=== PATIENT | male | born 1970 | race Caucasian/White ===

== ENCOUNTER 2016-08-04 05:59 | Emergency (ER) | payer MEDICAID ==
[~2016-08-04] VITALS: Ht 162.6 cm; Wt 59.0 kg
[~2016-08-04 05:59] MED LIST: ATEN-42 PO; DIPH25CA6 PO; DOCU-150 PO; FAMO20TA8 PO; LEVE750T10 PO; LEVO25TA7 PO; LORA1TAB PO; LORA2TAB2 PO; OXYB10TA11 PO; PHEN100C4 PO; SIMV10TA2 PO; SUCR1TAB PO; ZOLP10TA6 PO
[2016-08-04] MEDS ORDERED: LEVETIRACETAM 500MG TABLET PO ONE (06:45)
[2016-08-04] MEDS ORDERED: PHENYTOIN SODIUM 500 MG in SODIUM CHLORIDE 0.9% 50 ML IV ONE (06:45)
[2016-08-04] MEDS ORDERED: LORAZEPAM 2MG/ML CPJ IM ONE (07:15)
[2016-08-04] MEDS ORDERED: LEVETIRACETAM 500MG PREMIX 100 ML IV ONE (07:15)
[2016-08-04 08:36] LABS: ANION GAP 12; CALCIUM 8.3 mg/dL (8.5-10.1); CARBON DIOXIDE 26 mEq/L (21-32); CHLORIDE 107 mEq/L (98-107); INDEX HEMOLYSI 1 (1-3); INDEX ICTERIC 1 (1-4); INDEX LIPEMIC 1 (1-3); PHENYTOIN 4.6 ug/mL (10-20); UREA NITROGEN BLOOD 16 mg/dL (7-21); eGFR > 60 mL/min (>60)
[2016-08-04 08:38] LABS: CLARITY URINE CLEAR (CLEAR); COLOR URINE YELLOW (YELLOW); GLUCOSE URINE NEGATIVE (NEGATIVE); KETONES URINE NEGATIVE (NEGATIVE); LEUKOCYTE ESTERASE URINE NEGATIVE (NEGATIVE); NITRITE URINE NEGATIVE (NEGATIVE); OCCULT BLOOD URINE NEGATIVE (NEGATIVE); PROTEIN URINE NEGATIVE (NEGATIVE); SPECIFIC GRAVITY URINE 1.011 (1.005-1.030); UROBILINOGEN URINE 0.2 E.U./dL (0.2-1.0)
[2016-08-04 08:53] LABS: HEMATOCRIT. 43.8 % (42.0-52.0); HEMOGLOBIN. 14.2 g/dL (14.0-18.0); MEAN CORPUSCULAR HEMOGLOBIN 30.9 pg (28.0-32.0); MEAN CORPUSCULAR HGB CONC 32.4 g/dL (31.0-37.0); MEAN CORPUSCULAR VOLUME 95.3 fL (80.0-94.0); MEAN PLATELET VOLUME 8.1 fl (7.4-10.4); RED BLOOD CELL COUNT 4.59 mill/uL (4.7-6.1); RED CELL DISTRIBUTION WIDTH 15.8 % (11.6-14.6); WHITE BLOOD COUNT 21.1 x1000/uL (4.5-11.0)
[2016-08-04 08:54] LABS: DIFFERENTIAL COMMENT 1; PLATELET 206 x1000/uL (130-400)
[2016-08-04 09:46] LABS: PLATELET ESTIMATE NORMAL
[2016-08-04 09:47] LABS: TOXIC VACUOLATION FEW
[2016-08-04] MEDS ORDERED: PHENYTOIN SODIUM 100MG/2ML VIAL IV ONE (13:15)
[2016-08-04] MEDS ORDERED: PHENYTOIN SODIUM 600 MG in SODIUM CHLORIDE 0.9% 100 ML IV ONE (13:30)
[2016-08-04 14:00] VITALS: BP 108/66
== END 2016-08-04 14:00 | disposition home or self-care (01) ==
LOC: ER 06:02
DX: G40.89 Other seizures (principal); Q90.9 Down syndrome, unspecified; Z79.899 Other long term (current) drug therapy; Z91.018 Allergy to other foods
CPT/HCPCS: 36415; 71010; 80048; 80185; 81003; 85025; 96365; 96368; 96372; 99285; J1165; J1953; J2060; Z7610; J7050

== ENCOUNTER 2017-08-14 06:55 | Inpatient (IN) | payer MEDICAID ==
[2017-08-14] VITALS (7 sets, daily range): BP systolic 81–93; BP diastolic 31–66
[~2017-08-14] VITALS: Ht 162.6 cm; Wt 43.6 kg
[2017-08-14] MEDS ORDERED: SODIUM CHLORIDE 0.9% 1,000 ML IV ONE ×2 (07:18→08:42)
[2017-08-14] MEDS ORDERED: LORAZEPAM 2MG/ML CPJ IM ONE ×2 (07:30→10:15)
[2017-08-14] MEDS ORDERED: LEVETIRACETAM 500MG PREMIX 100 ML IV ONE (07:30)
[2017-08-14] MEDS ORDERED: LORAZEPAM 2MG/ML CPJ IV ONE (08:15)
[2017-08-14 09:05] LABS: CLARITY URINE CLOUDY (CLEAR); COLOR URINE YELLOW (YELLOW); KETONES URINE NEGATIVE (NEGATIVE); LEUKOCYTE ESTERASE URINE 2+ (NEGATIVE); NITRITE URINE NEGATIVE (NEGATIVE); OCCULT BLOOD URINE 2+ (NEGATIVE); PROTEIN URINE NEGATIVE (NEGATIVE); UROBILINOGEN URINE 0.2 E.U./dL (0.2-1.0)
[2017-08-14 09:06] LABS: HEMATOCRIT. 42.2 % (42.0-52.0); MEAN CORPUSCULAR VOLUME 102.7 fL (80.0-94.0); MEAN PLATELET VOLUME 8.4 fl (7.4-10.4); PLATELET 144 x1000/uL (130-400); RED BLOOD CELL COUNT 4.11 mill/uL (4.7-6.1); RED CELL DISTRIBUTION WIDTH 16.4 % (11.6-14.6)
[2017-08-14 09:11] LABS: INR 1.1; PROTHROMBIN TIME 11.8 sec (9.4-11.6)
[2017-08-14] MEDS ORDERED: PIPERACILLIN/TAZ 3.375G PREMIX 50 ML IV ONE (09:45)
[2017-08-14] MEDS ORDERED: VANCOMYCIN 1 G PREMIX 200 ML IV SCH (09:45)
[2017-08-14 10:08] LABS: PLATELET ESTIMATE NORMAL
[2017-08-14 10:32] LABS: CHLORIDE 104 mEq/L (98-107)
[2017-08-14] MEDS ORDERED: ONDANSETRON HCL 4MG/2ML VIAL IV PRN (11:15)
[2017-08-14] MEDS ORDERED: PIPERACILLIN/TAZ 3.375G PREMIX 50 ML IV SCH (11:15)
[2017-08-14 11:24] LABS: CARBAMAZEPINE < 0.5 ug/mL (4-12); PHENOBARBITAL < 2.1 ug/mL (15.0-40.0); VALPROIC ACID < 3.0 ug/mL (50-100)
[2017-08-14 11:32] LABS: BG BASE EXCESS -6.4 mmol/L (-2.0-2.0); BG CARBOXYHEMOGLOBIN 0.5 % (0.5-1.5); BG DEOXYHEMOGLOBIN 18.3 % (0.0-5.0); BG HCO3 ACT 20.7 mmol/L (22.0-26.0); BG METHEMOGLOBIN 0.3 % (0.0-1.5); BG OXYGEN SATURATION 81.6 % (92.0-98.5); BG OXYHEMOGLOBIN 80.9 % (94.0-97.0); BG PCO2 47.4 mmHg (35.0-45.0); BG PH 7.259 (7.350-7.450); BG PO2 50.5 mmHg (75.0-100.0); BG SAMPLE SITE RIGHT RADIAL; BG TOTAL HEMOGLOBIN 13.3 g/dL (12.0-18.0); BG VENT MODE NASAL CANNULA
[2017-08-14] MEDS: DEXT 5%/0.45% NACL 1000ML 1,000 ML IV SCH (13:34)
[2017-08-14] MEDS: PHENYTOIN SODIUM IV SCH ×2 (13:57→20:51)
[2017-08-14] MEDS: SODIUM CHLORIDE 0.9% IV SCH ×2 (13:57→20:51)
[2017-08-14] MEDS: PIPERACILLIN/TAZ 2.25G PREMIX 50 ML IV SCH ×2 (16:14→22:08)
[2017-08-14] MEDS: VANCOMYCIN 500 MG PREMIX 100 ML IV SCH (20:45)
[2017-08-14] MEDS: LEVETIRACETAM 500MG PREMIX 100 ML IV SCH (20:45)
[2017-08-14] MEDS: ZOLPIDEM TARTRATE 5MG TABLET PO SCH (22:52)
[2017-08-14] MEDS: DOCUSATE SODIUM 100MG CAPSULE PO SCH (22:52)
[2017-08-15] VITALS (13 sets, daily range): BP systolic 79–134; BP diastolic 33–73
[2017-08-15] MEDS: DEXT 5%/0.45% NACL 1000ML 1,000 ML IV SCH ×2 (00:52→04:00)
[2017-08-15] MEDS: PIPERACILLIN/TAZ 2.25G PREMIX 50 ML IV SCH ×3 (04:02→15:25)
[2017-08-15 06:13] LABS: HEMATOCRIT. 31.2 % (42.0-52.0); HEMOGLOBIN. 10.5 g/dL (14.0-18.0); MEAN CORPUSCULAR HEMOGLOBIN 34.3 pg (28.0-32.0); MEAN CORPUSCULAR VOLUME 101.7 fL (80.0-94.0); MEAN PLATELET VOLUME 8.3 fl (7.4-10.4); PLATELET 99 x1000/uL (130-400); RED BLOOD CELL COUNT 3.06 mill/uL (4.7-6.1); RED CELL DISTRIBUTION WIDTH 16.2 % (11.6-14.6)
[2017-08-15 06:27] LABS: CHLORIDE 108 mEq/L (98-107)
[2017-08-15] MEDS ORDERED: LEVOTHYROXINE SODIUM 25MCG TABLET PO SCH (07:30)
[2017-08-15 09:23] LABS: PLATELET ESTIMATE DECREASED
[2017-08-15] MEDS: OXYBUTYNIN CHLORIDE 5MG TABLET PO SCH (09:26)
[2017-08-15] MEDS: FAMOTIDINE 20MG TABLET PO SCH (09:26)
[2017-08-15] MEDS: LEVETIRACETAM 500MG PREMIX 100 ML IV SCH ×2 (09:26→22:27)
[2017-08-15] MEDS: SODIUM CHLORIDE 0.9% IV SCH ×2 (09:35→22:27)
[2017-08-15] MEDS: PHENYTOIN SODIUM IV SCH ×2 (09:35→22:27)
[2017-08-15] MEDS: VANCOMYCIN 500 MG PREMIX 100 ML IV SCH ×3 (10:10→21:25)
[2017-08-15] MEDS: KCL 20MEQ/100ML PREMIX 100 ML IV NR ×2 (13:44→16:36)
[2017-08-15] MEDS ORDERED: POTASSIUM CHLORIDE 20MEQ TABLET SR PO NR (17:00)
[2017-08-15] MEDS: CEFEPIME 2,000 MG in DEXT 5% WATER 100 ML IV SCH (18:16)
[2017-08-15] MEDS: METRONIDAZOLE 500 MG PREMIX 100 ML IV SCH (18:19)
[2017-08-15] MEDS: ZOLPIDEM TARTRATE 5MG TABLET PO SCH (21:17)
[2017-08-15] MEDS: DOCUSATE SODIUM 100MG CAPSULE PO SCH (21:17)
[2017-08-15 21:42] LABS: CREATINE KINASE 185 IU/L (39-308)
[2017-08-16] VITALS (13 sets, daily range): BP systolic 73–110; BP diastolic 33–75
[2017-08-16] MEDS: LORAZEPAM 2MG/ML CPJ IM PRN (00:44)
[2017-08-16] MEDS: METRONIDAZOLE 500 MG PREMIX 100 ML IV SCH ×3 (01:07→18:23)
[2017-08-16] MEDS: CEFEPIME 2,000 MG in DEXT 5% WATER 100 ML IV SCH ×2 (05:04→18:23)
[2017-08-16 05:51] LABS: HEMATOCRIT. 33.6 % (42.0-52.0); HEMOGLOBIN. 11.4 g/dL (14.0-18.0); MEAN CORPUSCULAR HEMOGLOBIN 34.3 pg (28.0-32.0); MEAN CORPUSCULAR VOLUME 100.9 fL (80.0-94.0); MEAN PLATELET VOLUME 8.6 fl (7.4-10.4); PLATELET 103 x1000/uL (130-400); RED BLOOD CELL COUNT 3.33 mill/uL (4.7-6.1); RED CELL DISTRIBUTION WIDTH 15.8 % (11.6-14.6)
[2017-08-16] MEDS: LEVOTHYROXINE SODIUM 25MCG TABLET PO SCH (06:35)
[2017-08-16 06:39] LABS: CHLORIDE 108 mEq/L (98-107)
[2017-08-16 06:46] LABS: VANCOMYCIN TROUGH 18.1 ug/mL (5.0-10.0)
[2017-08-16] MEDS: VANCOMYCIN 500 MG PREMIX 100 ML IV SCH (06:59)
[2017-08-16] MEDS: OXYBUTYNIN CHLORIDE 5MG TABLET PO SCH (08:18)
[2017-08-16] MEDS: FAMOTIDINE 20MG TABLET PO SCH (08:18)
[2017-08-16] MEDS ORDERED: LEVETIRACETAM 500MG PREMIX 100 ML IV SCH (10:30)
[2017-08-16] MEDS: LEVETIRACETAM 500MG PREMIX 100 ML IV SCH ×2 (10:53→20:54)
[2017-08-16] MEDS ORDERED: SODIUM CHLORIDE 0.9% 1,000 ML IV NR (16:15)
[2017-08-16] MEDS: IPRATROPIUM/ALBUTEROL 0.5-3(2.5)MG/3ML NEB HHN PRN (16:58)
[2017-08-16 17:57] LABS: PLATELET ESTIMATE DECREASED
[2017-08-16] MEDS: ZOLPIDEM TARTRATE 5MG TABLET PO SCH (20:54)
[2017-08-16] MEDS: DOCUSATE SODIUM 100MG CAPSULE PO SCH (20:54)
[2017-08-17] VITALS (12 sets, daily range): BP systolic 90–110; BP diastolic 55–77
[2017-08-17] MEDS: METRONIDAZOLE 500 MG PREMIX 100 ML IV SCH ×3 (01:58→17:39)
[2017-08-17] MEDS: LORAZEPAM 2MG/ML CPJ IM PRN (02:04)
[2017-08-17] MEDS: CEFEPIME 2,000 MG in DEXT 5% WATER 100 ML IV SCH ×2 (05:02→17:39)
[2017-08-17] MEDS: LEVOTHYROXINE SODIUM 25MCG TABLET PO SCH (07:09)
[2017-08-17] MEDS: LEVETIRACETAM 500MG PREMIX 100 ML IV SCH ×2 (08:52→21:05)
[2017-08-17] MEDS: OXYBUTYNIN CHLORIDE 5MG TABLET PO SCH (08:53)
[2017-08-17] MEDS: FAMOTIDINE 20MG TABLET PO SCH (08:53)
[2017-08-17 09:58] LABS: BASOPHILS % 0.5 % (0.0-2.0); EOSINOPHILS % 2.4 % (0.0-5.0); HEMATOCRIT. 34.3 % (42.0-52.0); HEMOGLOBIN. 11.6 g/dL (14.0-18.0); LYMPHOCYTES % 13.8 % (20.0-50.0); MEAN CORPUSCULAR HEMOGLOBIN 34.3 pg (28.0-32.0); MEAN PLATELET VOLUME 8.5 fl (7.4-10.4); MONOCYTES % 8.6 % (2.0-8.0); NEUTROPHILS % 74.7 % (40.0-76.0); PLATELET 112 x1000/uL (130-400); RED BLOOD CELL COUNT 3.39 mill/uL (4.7-6.1)
[2017-08-17] MEDS: IPRATROPIUM/ALBUTEROL 0.5-3(2.5)MG/3ML NEB HHN PRN ×2 (10:03→16:48)
[2017-08-17] MEDS: DOCUSATE SODIUM 100MG CAPSULE PO SCH (21:05)
[2017-08-17] MEDS: ZOLPIDEM TARTRATE 5MG TABLET PO SCH (21:05)
[2017-08-18] VITALS (10 sets, daily range): BP systolic 96–118; BP diastolic 54–90
[2017-08-18] MEDS: METRONIDAZOLE 500 MG PREMIX 100 ML IV SCH ×2 (01:10→09:42)
[2017-08-18] MEDS: CEFEPIME 2,000 MG in DEXT 5% WATER 100 ML IV SCH (04:27)
[2017-08-18] MEDS: LEVOTHYROXINE SODIUM 25MCG TABLET PO SCH (06:32)
[2017-08-18] MEDS: LEVETIRACETAM 500MG PREMIX 100 ML IV SCH (08:17)
[2017-08-18] MEDS: FAMOTIDINE 20MG TABLET PO SCH (08:17)
[2017-08-18] MEDS: OXYBUTYNIN CHLORIDE 5MG TABLET PO SCH (08:17)
[2017-08-18] MEDS ORDERED: PHENYTOIN SODIUM EXTENDED 100MG CAPSULE PO SCH (14:00)
[2017-08-18] MEDS: IPRATROPIUM/ALBUTEROL 0.5-3(2.5)MG/3ML NEB HHN PRN (14:11)
[2017-08-19] MEDS ORDERED: METRONIDAZOLE 500MG TABLET PO SCH
== END 2017-08-18 16:55 | disposition home or self-care (01) | DRG 720 ==
LOC: ER 06:55 → 5EST 10:13 → EDBEDREQ 10:17 → ENRESERV 10:48 → 5EST 08-15 09:38
PROVIDERS: ADMIT Internal Medicine; ATTEND Internal Medicine
PROC: 02HV33Z Insertion of Infusion Device into Superior Vena Cava, Percutaneous Approach (ICD-10-PCS; principal; 2017-08-14)
PROC: B548ZZA Ultrasonography of Superior Vena Cava, Guidance (ICD-10-PCS; 2017-08-14)
DX: A41.59 Other Gram-negative sepsis (principal); J96.01 Acute respiratory failure with hypoxia; J69.0 Pneumonitis due to inhalation of food and vomit; G93.41 Metabolic encephalopathy; N17.9 Acute kidney failure, unspecified; D69.6 Thrombocytopenia, unspecified; E44.0 Moderate protein-calorie malnutrition; D64.9 Anemia, unspecified; Q90.9 Down syndrome, unspecified; N39.0 Urinary tract infection, site not specified; E03.9 Hypothyroidism, unspecified; G40.909 Epilepsy, unspecified, not intractable, without status epilepticus; G80.9 Cerebral palsy, unspecified; E87.6 Hypokalemia; Z68.1 Body mass index [BMI] 19.9 or less, adult; I10 Essential (primary) hypertension; K58.9 Irritable bowel syndrome, unspecified; T42.0X5A Adverse effect of hydantoin derivatives, initial encounter; B96.1 Klebsiella pneumoniae [K. pneumoniae] as the cause of diseases classified elsewhere
CPT/HCPCS: 36415; 36569; 36600; 71045; 76937; 80048; 80053; 80156; 80165; 80184; 80185; 80202; 81003; 82375; 82550; 82805; 82962; 83605; 83880; 84443; 84484; 85025; 85610; 87040; 87077; 87086; 87186; 92610; 93005; 94640; 96374; 96375; 97116; 97162; 97163; 97166; 99285; C1725; J0692; J1165; J1953; J2060; J2543; J3370; J3480; J3490; J7030; J7050; J7060; J7620

== ENCOUNTER 2018-05-31 07:01 | Emergency (ER) | payer MEDICAID ==
[~2018-05-31] VITALS: Ht 162.6 cm; Wt 50.0 kg
[~2018-05-31 07:01] MED LIST changes: -LORA1TAB PO
[2018-05-31] MEDS ORDERED: SODIUM CHLORIDE 0.9% 1,000 ML IV ONE (07:40)
[2018-05-31] MEDS ORDERED: LORAZEPAM 2MG/ML CPJ IV ONE (08:45)
[2018-05-31 10:13] LABS: HEMATOCRIT. 41.3 % (42.0-52.0); HEMOGLOBIN. 13.5 g/dL (14.0-18.0); MEAN CORPUSCULAR HEMOGLOBIN 33.1 pg (28.0-32.0); PLATELET 151 x1000/uL (130-400); RED BLOOD CELL COUNT 4.09 mill/uL (4.7-6.1)
[2018-05-31 10:20] LABS: CHLORIDE 108 mEq/L (98-107)
[2018-05-31 10:33] LABS: CLARITY URINE CLEAR (CLEAR); COLOR URINE YELLOW (YELLOW); KETONES URINE NEGATIVE (NEGATIVE); LEUKOCYTE ESTERASE URINE NEGATIVE (NEGATIVE); NITRITE URINE NEGATIVE (NEGATIVE); OCCULT BLOOD URINE 2+ (NEGATIVE); PH URINE 6.5 (4.5-8.0); PROTEIN URINE NEGATIVE (NEGATIVE); SPECIFIC GRAVITY URINE 1.019 (1.005-1.030); UROBILINOGEN URINE 0.2 E.U./dL (0.2-1.0)
[2018-05-31 10:42] LABS: PLATELET ESTIMATE NORMAL
[2018-05-31] MEDS ORDERED: PHENYTOIN SODIUM 1,000 MG in SODIUM CHLORIDE 0.9% 100 ML IV ONE (11:00)
[2018-05-31 13:30] VITALS: BP 133/75
== END 2018-05-31 14:04 | disposition home or self-care (01) ==
LOC: ER 07:01
DX: G40.909 Epilepsy, unspecified, not intractable, without status epilepticus (principal); Q90.9 Down syndrome, unspecified; I10 Essential (primary) hypertension; Z91.011 Allergy to milk products; Z91.018 Allergy to other foods
CPT/HCPCS: 36415; 80053; 80185; 81003; 85025; 96365; 96375; 99283; J1165; J2060; J7030; J7050

== ENCOUNTER 2018-09-23 22:07 | Inpatient (IN) | payer MEDICAID ==
[~2018-09-23] VITALS: Ht 152.4 cm; Wt 57.0 kg
[2018-09-24] MEDS ORDERED: SODIUM CHLORIDE 0.9% 1000ML BAG (SEPSIS BOLUS) IV ONE (00:45)
[2018-09-24 03:50] LABS: CHLORIDE 107 mEq/L (98-107)
[2018-09-24 03:55] LABS: BASOPHILS % 0.3 % (0.0-2.0); EOSINOPHILS % 0.9 % (0.0-5.0); HEMATOCRIT. 47.1 % (42.0-52.0); HEMOGLOBIN. 15.5 g/dL (14.0-18.0); LYMPHOCYTES % 8.4 % (20.0-50.0); MEAN CORPUSCULAR HEMOGLOBIN 33.4 pg (28.0-32.0); MEAN CORPUSCULAR VOLUME 101.4 fL (80.0-94.0); MEAN PLATELET VOLUME 7.8 fl (7.4-10.4); MONOCYTES % 5.8 % (2.0-8.0); NEUTROPHILS % 84.6 % (40.0-76.0); PLATELET 220 x1000/uL (130-400); RED BLOOD CELL COUNT 4.64 mill/uL (4.7-6.1)
[2018-09-24] MEDS ORDERED: PIPERACILLIN/TAZ 3.375G PREMIX 50 ML IV ONE (04:30)
[2018-09-24] MEDS ORDERED: VANCOMYCIN 1 G PREMIX 200 ML IV ONE (04:30)
[2018-09-24] MEDS ORDERED: SODIUM CHLORIDE 0.9% 1,000 ML IV SCH (05:08)
[2018-09-24] MEDS ORDERED: DOCUSATE SODIUM 100MG CAPSULE PO PRN (09:15)
[2018-09-24] MEDS ORDERED: HYDROCODONE/ACETAMINOPHEN 5/325MG TABLET PO PRN (09:15)
[2018-09-24] MEDS ORDERED: MAGNESIUM/ALUMINUM HYDROXIDE/SIMETHICONE 30ML UDC PO PRN (09:15)
[2018-09-24] MEDS ORDERED: NA PHOS,M-B/NA PHOS,DI-BA ENEMA 118ML PR PRN (09:15)
[2018-09-24] MEDS ORDERED: IPRATROPIUM/ALBUTEROL 0.5-3(2.5)MG/3ML NEB INH PRN (09:15)
[2018-09-24] MEDS ORDERED: LORAZEPAM 2MG/ML CPJ IV PRN (09:15)
[2018-09-24] MEDS ORDERED: ACETAMINOPHEN 325MG TABLET PO PRN (09:15)
[2018-09-24] MEDS ORDERED: MORPHINE SULFATE 2 MG/ML CPJ (NOT FOR IM USE) IV PRN (09:15)
[2018-09-24] MEDS ORDERED: CLONIDINE 0.1MG TABLET PO PRN (09:15)
[2018-09-24] MEDS ORDERED: PIPERACILLIN/TAZ 3.375G PREMIX 50 ML IV SCH (09:15)
[2018-09-24] MEDS ORDERED: DIPHENHYDRAMINE 50MG/ML VIAL IV PRN (09:15)
[2018-09-24] MEDS ORDERED: ONDANSETRON HCL 4MG/2ML INJ IV PRN (09:15)
[2018-09-24] MEDS ORDERED: GUAIFENESIN 200MG/10ML SUGAR FREE UDC PO PRN (09:15)
[2018-09-24 09:30] VITALS: BP 108/65
[2018-09-24 11:20] VITALS: BP 108/65
[2018-09-24] MEDS: ASPIRIN 81MG EC TABLET PO SCH (11:43)
[2018-09-24] MEDS: ENOXAPARIN 40MG/0.4ML SYR SUBCUT SCH (11:44)
[2018-09-24 12:00] VITALS: BP 109/67
[2018-09-24] MEDS: OXYBUTYNIN CHLORIDE 5MG TABLET PO SCH (14:50)
[2018-09-24] MEDS: LEVOTHYROXINE SODIUM 25MCG TABLET PO SCH (14:50)
[2018-09-24] MEDS: PIPERACILLIN/TAZ 3.375G PREMIX 50 ML IV SCH ×2 (14:51→21:40)
[2018-09-24] MEDS: LEVETIRACETAM 500MG TABLET PO SCH ×2 (14:51→21:39)
[2018-09-24] MEDS: SODIUM CHLORIDE 0.45% 1,000 ML IV SCH (14:52)
[2018-09-24 16:20] VITALS: BP 109/69
[2018-09-24] MEDS: SUCRALFATE 1G TABLET PO SCH ×2 (17:13→21:39)
[2018-09-24 20:00] VITALS: BP 109/55
[2018-09-24] MEDS ORDERED: PHENYTOIN SODIUM EXTENDED 100MG CAPSULE PO SCH (21:00)
[2018-09-24] MEDS: ZOLPIDEM TARTRATE 5MG TABLET PO SCH (21:39)
[2018-09-25] VITALS (7 sets, daily range): BP systolic 90–114; BP diastolic 54–74
[2018-09-25] MEDS: PIPERACILLIN/TAZ 3.375G PREMIX 50 ML IV SCH (05:40)
[2018-09-25] MEDS: LEVOTHYROXINE SODIUM 25MCG TABLET PO SCH (05:40)
[2018-09-25] MEDS: SUCRALFATE 1G TABLET PO SCH ×4 (05:40→21:22)
[2018-09-25 07:34] LABS: CHLORIDE 106 mEq/L (98-107)
[2018-09-25 07:41] LABS: EOSINOPHILS % 7.2 % (0.0-5.0); HEMATOCRIT. 38.1 % (42.0-52.0); HEMOGLOBIN. 12.8 g/dL (14.0-18.0); LYMPHOCYTES % 16.7 % (20.0-50.0); MEAN CORPUSCULAR HEMOGLOBIN 33.9 pg (28.0-32.0); MEAN CORPUSCULAR VOLUME 101.1 fL (80.0-94.0); MEAN PLATELET VOLUME 8.2 fl (7.4-10.4); MONOCYTES % 11.1 % (2.0-8.0); PLATELET 186 x1000/uL (130-400); RED BLOOD CELL COUNT 3.76 mill/uL (4.7-6.1); RED CELL DISTRIBUTION WIDTH 14.9 % (11.6-14.6)
[2018-09-25 07:44] LABS: T4 FREE 1.01 ng/dL (0.76-1.46)
[2018-09-25 07:47] LABS: HDL CHOLESTEROL 49 mg/dL (40-59); LDL CHOLESTEROL 87 mg/dL (5-100)
[2018-09-25] MEDS: ATENOLOL 25MG TABLET PO SCH (09:00)
[2018-09-25] MEDS: SODIUM CHLORIDE 0.45% 1,000 ML IV SCH (09:30)
[2018-09-25] MEDS: LEVETIRACETAM 500MG TABLET PO SCH ×2 (09:36→21:22)
[2018-09-25] MEDS: ASPIRIN 81MG EC TABLET PO SCH (09:37)
[2018-09-25] MEDS: FAMOTIDINE 20MG TABLET PO SCH (09:37)
[2018-09-25] MEDS: OXYBUTYNIN CHLORIDE 5MG TABLET PO SCH (09:37)
[2018-09-25] MEDS: DOCUSATE SODIUM 100MG CAPSULE PO SCH (09:38)
[2018-09-25] MEDS: ENOXAPARIN 40MG/0.4ML SYR SUBCUT SCH (09:38)
[2018-09-25 10:41] LABS: BG BASE EXCESS 1.2 mmol/L (-2.0-2.0); BG CARBOXYHEMOGLOBIN 1.1 % (0.5-1.5); BG FRACTION INSPIRED OXYGEN 100; BG HCO3 ACT 25.6 mmol/L (22.0-26.0); BG METHEMOGLOBIN 0.3 % (0.0-1.5); BG OXYGEN SATURATION 92.9 % (92.0-98.5); BG OXYHEMOGLOBIN 91.6 % (94.0-97.0); BG PCO2 39.9 mmHg (35.0-45.0); BG PH 7.425 (7.350-7.450); BG PO2 68.6 mmHg (75.0-100.0); BG SAMPLE SITE RIGHT RADIAL; BG TOTAL HEMOGLOBIN 13.3 g/dL (12.0-18.0); BG VENT MODE MASK - NRB
[2018-09-25] MEDS ORDERED: POTASSIUM CHLORIDE 20MEQ/PACKET PO NR (11:30)
[2018-09-25] MEDS: IPRATROPIUM/ALBUTEROL 0.5-3(2.5)MG/3ML NEB HHN SCH ×4 (12:29→21:09)
[2018-09-25] MEDS: ACETYLCYSTEINE 100MG/ML 10% VIAL 4ML INH SCH ×2 (12:30→21:08)
[2018-09-25] MEDS: CEFEPIME 1,000 MG in DEXTROSE 5% WATER 50 ML IV SCH ×2 (12:56→21:22)
[2018-09-25] MEDS ORDERED: POTASSIUM CHLORIDE INJ 40 MEQ in DEXT 5% WATER 250 ML IV SCH (13:00)
[2018-09-25] MEDS: METRONIDAZOLE 500 MG PREMIX 100 ML IV SCH ×2 (14:14→22:06)
[2018-09-25] MEDS ORDERED: LORAZEPAM 2MG/ML CPJ IV PRN (15:15)
[2018-09-25] MEDS ORDERED: LORAZEPAM 2MG/ML CPJ IM PRN (18:15)
[2018-09-25 18:48] LABS: CLARITY URINE CLEAR (CLEAR); COLOR URINE YELLOW (YELLOW); KETONES URINE NEGATIVE (NEGATIVE); LEUKOCYTE ESTERASE URINE NEGATIVE (NEGATIVE); NITRITE URINE NEGATIVE (NEGATIVE); OCCULT BLOOD URINE NEGATIVE (NEGATIVE); PH URINE 6.5 (4.5-8.0); PROTEIN URINE NEGATIVE (NEGATIVE); SPECIFIC GRAVITY URINE 1.017 (1.005-1.030); UROBILINOGEN URINE 0.2 E.U./dL (0.2-1.0)
[2018-09-25] MEDS: ZOLPIDEM TARTRATE 5MG TABLET PO SCH (21:22)
[2018-09-26] VITALS: BP_SYST 110; BP_SYST 98; BP_DIAS 56; BP_DIAS 79
[2018-09-26] MEDS: IPRATROPIUM/ALBUTEROL 0.5-3(2.5)MG/3ML NEB HHN SCH ×4 (01:49→20:30)
[2018-09-26 04:11] VITALS: BP 95/58
[2018-09-26] MEDS: METRONIDAZOLE 500 MG PREMIX 100 ML IV SCH ×3 (06:05→23:09)
[2018-09-26] MEDS: LEVOTHYROXINE SODIUM 25MCG TABLET PO SCH (06:39)
[2018-09-26] MEDS: SUCRALFATE 1G TABLET PO SCH ×4 (06:39→21:07)
[2018-09-26 07:33] LABS: HEMOGLOBIN. 12.5 g/dL (14.0-18.0); LYMPHOCYTES % 19.8 % (20.0-50.0); MEAN CORPUSCULAR VOLUME 100.5 fL (80.0-94.0); MEAN PLATELET VOLUME 7.8 fl (7.4-10.4); MONOCYTES % 10.7 % (2.0-8.0); NEUTROPHILS % 60.5 % (40.0-76.0); PLATELET 205 x1000/uL (130-400); RED BLOOD CELL COUNT 3.68 mill/uL (4.7-6.1); RED CELL DISTRIBUTION WIDTH 14.6 % (11.6-14.6)
[2018-09-26 08:00] VITALS: BP 110/67
[2018-09-26 08:26] LABS: CHLORIDE 108 mEq/L (98-107)
[2018-09-26] MEDS: ATENOLOL 25MG TABLET PO SCH (09:00)
[2018-09-26] MEDS: SODIUM CHLORIDE 0.45% 1,000 ML IV SCH (09:30)
[2018-09-26] MEDS: LEVETIRACETAM 500MG TABLET PO SCH ×2 (09:49→21:06)
[2018-09-26] MEDS: DOCUSATE SODIUM 100MG CAPSULE PO SCH (09:49)
[2018-09-26] MEDS: OXYBUTYNIN CHLORIDE 5MG TABLET PO SCH (09:49)
[2018-09-26] MEDS: FAMOTIDINE 20MG TABLET PO SCH (09:49)
[2018-09-26] MEDS: ASPIRIN 81MG EC TABLET PO SCH (09:49)
[2018-09-26] MEDS: CEFEPIME 1,000 MG in DEXTROSE 5% WATER 50 ML IV SCH ×2 (09:52→21:06)
[2018-09-26] MEDS: ENOXAPARIN 40MG/0.4ML SYR SUBCUT SCH (09:53)
[2018-09-26 12:00] VITALS: BP 100/61
[2018-09-26 16:00] VITALS: BP_SYST 131; BP_SYST 137; BP_DIAS 71; BP_DIAS 79
[2018-09-26 20:00] VITALS: BP 110/66
[2018-09-26] MEDS: ZOLPIDEM TARTRATE 5MG TABLET PO SCH (21:07)
[2018-09-27] VITALS: BP 102/60
[2018-09-27] MEDS: IPRATROPIUM/ALBUTEROL 0.5-3(2.5)MG/3ML NEB HHN SCH ×2 (00:09→09:13)
[2018-09-27 04:00] VITALS: BP 109/71
[2018-09-27] MEDS: METRONIDAZOLE 500 MG PREMIX 100 ML IV SCH (05:58)
[2018-09-27] MEDS: SUCRALFATE 1G TABLET PO SCH (06:32)
[2018-09-27] MEDS: LEVOTHYROXINE SODIUM 25MCG TABLET PO SCH (06:33)
[2018-09-27 06:49] LABS: HEMATOCRIT. 40.7 % (42.0-52.0); HEMOGLOBIN. 13.8 g/dL (14.0-18.0); MEAN CORPUSCULAR HEMOGLOBIN 34.1 pg (28.0-32.0); MEAN CORPUSCULAR VOLUME 100.9 fL (80.0-94.0); PLATELET 214 x1000/uL (130-400); RED BLOOD CELL COUNT 4.04 mill/uL (4.7-6.1); RED CELL DISTRIBUTION WIDTH 15.1 % (11.6-14.6)
[2018-09-27 06:52] LABS: CHLORIDE 107 mEq/L (98-107)
[2018-09-27 08:00] VITALS: BP 110/68
[2018-09-27] MEDS: ACETYLCYSTEINE 100MG/ML 10% VIAL 4ML INH SCH (09:13)
[2018-09-27] MEDS: CEFEPIME 1,000 MG in DEXTROSE 5% WATER 50 ML IV SCH (09:17)
[2018-09-27] MEDS: SODIUM CHLORIDE 0.45% 1,000 ML IV SCH (09:17)
[2018-09-27] MEDS: ASPIRIN 81MG EC TABLET PO SCH (09:18)
[2018-09-27] MEDS: FAMOTIDINE 20MG TABLET PO SCH (09:18)
[2018-09-27] MEDS: ATENOLOL 25MG TABLET PO SCH (09:18)
[2018-09-27] MEDS: OXYBUTYNIN CHLORIDE 5MG TABLET PO SCH (09:18)
[2018-09-27] MEDS: LEVETIRACETAM 500MG TABLET PO SCH (09:18)
[2018-09-27] MEDS: DOCUSATE SODIUM 100MG CAPSULE PO SCH (09:19)
[2018-09-27] MEDS: ENOXAPARIN 40MG/0.4ML SYR SUBCUT SCH (09:25)
[2018-09-27 10:07] VITALS: BP 110/68
[2018-09-27 10:28] LABS: PLATELET ESTIMATE NORMAL
== END 2018-09-27 11:53 | disposition home or self-care (01) | DRG 720 ==
LOC: ER 22:07 → 8WST 09-24 05:09 → EDBEDREQSVC 09-24 05:16 → EDBEDREQ 09-24 05:16 → EDBEDREQTM 09-24 05:16 → ENRESERV 09-24 08:00 → 8WST 09-25 00:48
PROVIDERS: ADMIT Internal Medicine; ATTEND Internal Medicine
DX: A41.9 Sepsis, unspecified organism (principal); J96.01 Acute respiratory failure with hypoxia; J69.0 Pneumonitis due to inhalation of food and vomit; I11.0 Hypertensive heart disease with heart failure; I50.9 Heart failure, unspecified; E86.0 Dehydration; G80.9 Cerebral palsy, unspecified; E87.6 Hypokalemia; I25.10 Atherosclerotic heart disease of native coronary artery without angina pectoris; K58.9 Irritable bowel syndrome, unspecified; G40.909 Epilepsy, unspecified, not intractable, without status epilepticus; E03.9 Hypothyroidism, unspecified; F41.9 Anxiety disorder, unspecified; R47.01 Aphasia; Z79.890 Hormone replacement therapy; Q90.9 Down syndrome, unspecified; Z79.899 Other long term (current) drug therapy; Z87.440 Personal history of urinary (tract) infections; Z87.01 Personal history of pneumonia (recurrent)
CPT/HCPCS: 36415; 36600; 71045; 80048; 80061; 80185; 82375; 82805; 83605; 83880; 84439; 84443; 84484; 87070; 87804; 92610; 93005; 94640; 94667; 96361; 96365; 96366; 96368; 97161; 99291; J0692; J1200; J1650; J2060; J2270; J2543; J3370; J3480; J3490; J7030; J7060; J7608; J7620

== ENCOUNTER 2019-07-16 16:04 | Emergency (ER) | payer MEDICAID ==
[~2019-07-16] VITALS: Ht 165.1 cm; Wt 65.0 kg
[~2019-07-16 16:04] MED LIST changes: +B25 PO; -DIPH25CA6 PO
[2019-07-16] MEDS ORDERED: IBUPROFEN 600MG TABLET PO ONE (17:45)
[2019-07-16] MEDS ORDERED: AMOXICILLIN/POTASSIUM CLAVULANATE 875/125MG TAB PO ONE (18:00)
[2019-07-16 18:30] VITALS: BP 102/48
== END 2019-07-16 18:46 | disposition home or self-care (01) ==
LOC: ER 16:04
DX: K04.7 Periapical abscess without sinus (principal); G40.909 Epilepsy, unspecified, not intractable, without status epilepticus; I10 Essential (primary) hypertension; E03.9 Hypothyroidism, unspecified; Q90.9 Down syndrome, unspecified; Z91.011 Allergy to milk products; Z91.018 Allergy to other foods
CPT/HCPCS: 99283

== ENCOUNTER 2019-10-29 08:25 | Inpatient (IN) | payer MEDICAID ==
[~2019-10-29] VITALS: Ht 152.4 cm; Wt 48.1 kg
[2019-10-29 09:22] LABS: CHLORIDE 106 mEq/L (98-107)
[2019-10-29 09:37] LABS: BASOPHILS % 0.7 % (0.0-2.0); EOSINOPHILS % 2.7 % (0.0-5.0); HEMATOCRIT. 43.5 % (42.0-52.0); HEMOGLOBIN. 14.5 g/dL (14.0-18.0); LYMPHOCYTES % 20.5 % (20.0-50.0); MEAN CORPUSCULAR HEMOGLOBIN 33.8 pg (28.0-32.0); MEAN PLATELET VOLUME 8.3 fl (7.4-10.4); MONOCYTES % 8.9 % (2.0-8.0); NEUTROPHILS % 67.2 % (40.0-76.0); PLATELET 185 x1000/uL (130-400); RED BLOOD CELL COUNT 4.31 mill/uL (4.7-6.1)
[2019-10-29] MEDS ORDERED: SODIUM CHLORIDE 0.9% 1,000 ML IV ONE (09:38)
[2019-10-29 09:44] LABS: PROTHROMBIN TIME 10.3 sec (9.6-11.0)
[2019-10-29] MEDS ORDERED: VANCOMYCIN 1 G PREMIX 200 ML IV ONE (09:45)
[2019-10-29] MEDS ORDERED: PIPERACILLIN/TAZ 3.375G PREMIX 50 ML IV ONE (09:45)
[2019-10-29] MEDS ORDERED: SODIUM CHLORIDE 0.9% 1000ML BAG (SEPSIS BOLUS) IV ONE (09:45)
[2019-10-29 09:51] LABS: CLARITY URINE CLEAR (CLEAR); COLOR URINE YELLOW (YELLOW); KETONES URINE NEGATIVE (NEGATIVE); LEUKOCYTE ESTERASE URINE NEGATIVE (NEGATIVE); NITRITE URINE NEGATIVE (NEGATIVE); OCCULT BLOOD URINE NEGATIVE (NEGATIVE); PROTEIN URINE NEGATIVE (NEGATIVE); SPECIFIC GRAVITY URINE 1.014 (1.005-1.030); UROBILINOGEN URINE 0.2 E.U./dL (0.2-1.0)
[2019-10-29] MEDS ORDERED: ACETAMINOPHEN 325MG TABLET PO PRN (13:00)
[2019-10-29] MEDS ORDERED: ONDANSETRON HCL 4MG/2ML INJ IV PRN (13:00)
[2019-10-29] MEDS: DEXT 5%/0.45% NACL 1000ML 1,000 ML IV SCH (13:01)
[2019-10-29 22:48] VITALS: BP 104/70
[2019-10-30] MEDS ORDERED: MEDICATION NOT ON FORMULARY EA (Lorazepam 2 MG) PO PRN
[2019-10-30] MEDS: DEXT 5%/0.45% NACL 1000ML 1,000 ML IV SCH ×2 (01:48→17:14)
[2019-10-30 04:00] VITALS: BP 143/60
[2019-10-30] MEDS: LEVOTHYROXINE SODIUM 25MCG TABLET PO SCH (06:16)
[2019-10-30 06:48] LABS: CHLORIDE 110 mEq/L (98-107)
[2019-10-30 07:03] LABS: HEMATOCRIT. 37.7 % (42.0-52.0); HEMOGLOBIN. 12.7 g/dL (14.0-18.0); LYMPHOCYTES % 22.6 % (20.0-50.0); MEAN CORPUSCULAR HEMOGLOBIN 33.5 pg (28.0-32.0); MEAN CORPUSCULAR VOLUME 99.9 fL (80.0-94.0); MEAN PLATELET VOLUME 8.2 fl (7.4-10.4); MONOCYTES % 13.7 % (2.0-8.0); NEUTROPHILS % 59.7 % (40.0-76.0); PLATELET 164 x1000/uL (130-400); RED BLOOD CELL COUNT 3.78 mill/uL (4.7-6.1); RED CELL DISTRIBUTION WIDTH 13.8 % (11.6-14.6)
[2019-10-30 08:00] VITALS: BP 103/68
[2019-10-30] MEDS: PHENYTOIN SODIUM EXTENDED 100MG CAPSULE PO SCH ×3 (08:36→17:25)
[2019-10-30] MEDS: FAMOTIDINE 20MG TABLET PO SCH (08:36)
[2019-10-30] MEDS: OXYBUTYNIN CHLORIDE 5MG TABLET PO SCH (08:36)
[2019-10-30] MEDS: LEVETIRACETAM 500MG TABLET PO SCH ×2 (08:37→20:35)
[2019-10-30] MEDS ORDERED: MEDICATION NOT ON FORMULARY EA (Levetiracetam 750 MG) PO SCH (09:00)
[2019-10-30 12:00] VITALS: BP 102/59
[2019-10-30 16:00] VITALS: BP 91/62
[2019-10-30 20:00] VITALS: BP 116/73
[2019-10-30] MEDS: ATORVASTATIN CALCIUM 10MG TABLET PO SCH (20:34)
[2019-10-30] MEDS: DIPHENHYDRAMINE 25MG CAPSULE PO SCH (20:36)
[2019-10-30] MEDS: DOCUSATE SODIUM 100MG CAPSULE PO SCH (20:36)
[2019-10-31] VITALS: BP 112/73
[2019-10-31 04:00] VITALS: BP 120/65
[2019-10-31] MEDS: LEVOTHYROXINE SODIUM 25MCG TABLET PO SCH (06:14)
[2019-10-31 08:00] VITALS: BP 94/58
[2019-10-31] MEDS: DEXT 5%/0.45% NACL 1000ML 1,000 ML IV SCH ×2 (09:10→09:11)
[2019-10-31] MEDS: PHENYTOIN SODIUM EXTENDED 100MG CAPSULE PO SCH ×3 (09:10→16:58)
[2019-10-31] MEDS: OXYBUTYNIN CHLORIDE 5MG TABLET PO SCH (09:10)
[2019-10-31] MEDS: FAMOTIDINE 20MG TABLET PO SCH (09:10)
[2019-10-31] MEDS: LEVETIRACETAM 500MG TABLET PO SCH ×2 (09:10→21:17)
[2019-10-31 12:00] VITALS: BP 92/65
[2019-10-31 16:00] VITALS: BP 144/69
[2019-10-31 20:00] VITALS: BP 104/64
[2019-10-31] MEDS: ATORVASTATIN CALCIUM 10MG TABLET PO SCH (21:17)
[2019-10-31] MEDS: DOCUSATE SODIUM 100MG CAPSULE PO SCH (21:17)
[2019-10-31] MEDS: DIPHENHYDRAMINE 25MG CAPSULE PO SCH (21:17)
[2019-10-31] MEDS: LORAZEPAM 1MG TABLET PO PRN (21:17)
[2019-11-01] VITALS: BP 108/72
[2019-11-01 04:00] VITALS: BP 91/57
[2019-11-01] MEDS: LEVOTHYROXINE SODIUM 25MCG TABLET PO SCH (06:44)
[2019-11-01] MEDS: DEXT 5%/0.45% NACL 1000ML 1,000 ML IV SCH (06:45)
[2019-11-01 08:00] VITALS: BP 106/73
[2019-11-01] MEDS: PHENYTOIN SODIUM EXTENDED 100MG CAPSULE PO SCH ×3 (08:25→17:51)
[2019-11-01] MEDS: FAMOTIDINE 20MG TABLET PO SCH (08:25)
[2019-11-01] MEDS: OXYBUTYNIN CHLORIDE 5MG TABLET PO SCH (08:29)
[2019-11-01] MEDS: LORAZEPAM 1MG TABLET PO PRN (08:29)
[2019-11-01] MEDS: LEVETIRACETAM 500MG TABLET PO SCH (08:29)
[2019-11-01 12:00] VITALS: BP 116/83
[2019-11-01] MEDS ORDERED: LORAZEPAM 2MG/ML CPJ IV NR (12:30)
[2019-11-01] MEDS ORDERED: DIPHENHYDRAMINE 50MG CAPSULE PO NR (12:30)
[2019-11-01 16:00] VITALS: BP 110/77
[2019-11-01 16:54] LABS: VITAMIN B12 SERUM 335 pg/mL (211-911)
[2019-11-01 18:11] VITALS: BP 110/77
== END 2019-11-01 19:10 | DRG 53 ==
LOC: ER 08:25 → 5WST 11:47 → EDBEDREQ 11:49 → EDBEDREQSVC 11:49 → ENRESERV 20:54
PROVIDERS: ADMIT Internal Medicine; ATTEND Internal Medicine
PROC: 4A10X4Z Monitoring of Central Nervous Electrical Activity, External Approach (ICD-10-PCS; principal; 2019-11-01)
DX: G40.909 Epilepsy, unspecified, not intractable, without status epilepticus (principal); Q90.9 Down syndrome, unspecified; E03.9 Hypothyroidism, unspecified; I10 Essential (primary) hypertension; E87.2 Acidosis; F79 Unspecified intellectual disabilities; R32 Unspecified urinary incontinence; R15.9 Full incontinence of feces; G93.89 Other specified disorders of brain; R26.2 Difficulty in walking, not elsewhere classified; Z88.8 Allergy status to other drugs, medicaments and biological substances; Z91.018 Allergy to other foods; Z79.890 Hormone replacement therapy; Z79.899 Other long term (current) drug therapy
CPT/HCPCS: 36415; 71045; 80048; 80053; 80320; 81003; 82542; 82607; 83605; 84145; 84443; 84484; 85025; 93005; 97116; 97162; 99291; J2060; J2543; J3370; J7030; Q0163; G0480

== ENCOUNTER 2020-08-30 10:53 | Emergency (ER) | payer MEDICAID ==
[~2020-08-30] VITALS: Ht 152.4 cm; Wt 55.0 kg
[~2020-08-30 10:53] MED LIST changes: -ATEN-42 PO
[2020-08-30] MEDS ORDERED: MIDAZOLAM HCL 2 MG/2 ML VIAL IM ONE (11:45)
[2020-08-30] MEDS ORDERED: SODIUM CHLORIDE 0.9% 1000ML BAG (SEPSIS BOLUS) IV ONE (11:45)
[2020-08-30 12:52] LABS: EOSINOPHILS % 0.5 % (0.0-5.0); HEMATOCRIT. 28.8 % (42.0-52.0); HEMOGLOBIN. 9.8 g/dL (14.0-18.0); LYMPHOCYTES % 10.1 % (20.0-50.0); MEAN CORPUSCULAR HEMOGLOBIN 33.4 pg (28.0-32.0); MEAN CORPUSCULAR VOLUME 98.4 fL (80.0-94.0); MEAN PLATELET VOLUME 9.5 fl (7.4-10.4); MONOCYTES % 12.3 % (2.0-8.0); NEUTROPHILS % 76.1 % (40.0-76.0); PLATELET 249 x1000/uL (130-400); RED BLOOD CELL COUNT 2.93 mill/uL (4.7-6.1); RED CELL DISTRIBUTION WIDTH 14.2 % (11.6-14.6)
[2020-08-30 12:57] LABS: CHLORIDE 105 mEq/L (98-107)
[2020-08-30 13:26] LABS: CLARITY URINE CLOUDY (CLEAR); COLOR URINE YELLOW (YELLOW); KETONES URINE TRACE (NEGATIVE); LEUKOCYTE ESTERASE URINE NEGATIVE (NEGATIVE); NITRITE URINE NEGATIVE (NEGATIVE); OCCULT BLOOD URINE NEGATIVE (NEGATIVE); PROTEIN URINE TRACE (NEGATIVE); SPECIFIC GRAVITY URINE 1.025 (1.005-1.030)
[2020-08-30 13:54] LABS: *AMPHETAMINES SCREEN URINE NEGATIVE (NEGATIVE); CANNABINOID URINE SCREEN NEGATIVE (NEGATIVE); METHADONE URINE SCREEN NEGATIVE (NEGATIVE); OPIATES URINE SCREEN NEGATIVE (NEGATIVE); PHENCYCLIDINE URINE SCREEN NEGATIVE (NEGATIVE)
[2020-08-30 13:56] LABS: *BARBITURATES SCREEN URINE NEGATIVE (NEGATIVE)
[2020-08-30 13:59] LABS: *BENZODIAZEPINES SCREEN URINE PRESUMTIVE POSITIVE (NEGATIVE); *COCAINE SCREEN URINE NEGATIVE (NEGATIVE)
[2020-08-30] MEDS ORDERED: SUCRALFATE 1 G/10 ML UDC PO ONE (18:15)
[2020-08-30] MEDS ORDERED: LEVETIRACETAM 500MG/5ML CUP PO ONE (18:15)
[2020-08-30] MEDS ORDERED: AZITHROMYCIN 500 MG in DEXT 5% WATER 250 ML IV ONE (21:00)
[2020-08-30] MEDS ORDERED: ZOLPIDEM TARTRATE 5MG TABLET PO ONE (21:00)
[2020-08-30] MEDS ORDERED: DOCUSATE SODIUM 100MG CAPSULE PO ONE (21:00)
[2020-08-30] MEDS ORDERED: PHENYTOIN SODIUM EXTENDED 100MG CAPSULE PO ONE (21:00)
[2020-08-30] MEDS ORDERED: ACETAMINOPHEN 325MG TABLET PO ONE (21:15)
[2020-08-30] MEDS ORDERED: NITROFURANTOIN 100MG M/M CAPSULE PO ONE (21:30)
[2020-08-30] MEDS ORDERED: CEFTRIAXONE 1 G PREMIX 50 ML IV ONE (21:45)
[2020-08-31 01:05] VITALS: BP 113/63
[2020-08-31] MEDS ORDERED: DEXT 5%/0.9% NACL 500 ML IV ONE (03:30)
[2020-08-31] MEDS ORDERED: NA PHOS,M-B/NA PHOS,DI-BA ENEMA 118ML PR ONE (03:30)
[2020-08-31] MEDS ORDERED: ACETAMINOPHEN 325MG TABLET PO ONE (03:30)
== END 2020-08-31 04:11 | disposition short-term general hospital (02) ==
LOC: ER 11:34
DX: S72.001A Fracture of unspecified part of neck of right femur, initial encounter for closed fracture (principal); T14.8XXA Other injury of unspecified body region, initial encounter; Q90.9 Down syndrome, unspecified; J18.9 Pneumonia, unspecified organism; R80.9 Proteinuria, unspecified; R82.4 Acetonuria; I10 Essential (primary) hypertension; N17.0 Acute kidney failure with tubular necrosis; Z20.822 Contact with and (suspected) exposure to COVID-19; Z98.890 Other specified postprocedural states; Z86.39 Personal history of other endocrine, nutritional and metabolic disease; Z86.59 Personal history of other mental and behavioral disorders; Z79.899 Other long term (current) drug therapy; Z91.018 Allergy to other foods; Z91.011 Allergy to milk products; X58.XXXA Exposure to other specified factors, initial encounter; Y93.89 Activity, other specified; Y92.89 Other specified places as the place of occurrence of the external cause; Y99.8 Other external cause status
CPT/HCPCS: 36415; 70450; 71045; 71250; 74176; 80048; 80076; 80305; 81003; 82010; 83605; 84145; 84484; 85025; 87040; 87086; 93005; 96361; 96365; 96366; 96368; 96372; 99285; C9803; J0456; J2250; J7030; J7042; J7060; U0003; U0005; Z7610